=== PATIENT | female | born 1985 | race Caucasian/White ===

== ENCOUNTER 2016-11-30 08:47 | Emergency (ER) | payer MEDICAID, OTHER ==
[~2016-11-30] VITALS: Ht 175.3 cm; Wt 88.0 kg
[~2016-11-30 08:47] MED LIST: TRAM-29 PO
--- NOTE | 2016-11-30 08:58 | PHYS DOC ---
Past Medical History Past Medical History: No Pertinent History Past Surgical History: Tonsillectomy, Other Additional Past Surgical Histo: DNC, ADENOIDECTOMY Alcohol Use: Occasionally Drug Use: None Adult General Chief Complaint Chief Complaint: SORE THROAT HPI HPI Patient is a 31 year old female who presents with sore throat, nasal congestion, right ear pain. She states his been going on for approximately 2 weeks, she still getting greens discharge out of her nose. She denies any fevers chills nausea or vomiting. She's had her adenoids removed in the past and has had tubes in her years secondary to numerous ear infections. She is 17 weeks . She is not having any nausea or abdominal pain. She is been taking Tylenol for discomfort. Review of Systems Review of Systems Constitutional: Denies fever or chills [] Eyes: Denies change in visual acuity, redness, or eye pain [] HENT: Positive for nasal congestion and sore throat in addition to right ear pain/congestion. Respiratory: Denies cough or shortness of breath [] Cardiovascular: No additional information not addressed in HPI [] GI: Denies abdominal pain, nausea, vomiting, bloody stools or diarrhea [] : Denies dysuria or hematuria [] Musculoskeletal: Denies back pain or joint pain [] Integument: Denies rash or skin lesions [] Neurologic: Denies headache, focal weakness or sensory changes [] Endocrine: Denies polyuria or polydipsia [] Allergies Allergies Allergies Coded Allergies Type Severity Reaction Last Updated Verified No Known Drug Allergies 05/09/16 No Physical Exam Physical Exam Constitutional: Well developed, well nourished, no acute distress, non-toxic appearance. [] HENT: Normocephalic, atraumatic, bilateral external ears normal, oropharynx moist, no oral exudates, nose normal. Bilateral TMs without any erythema, right TM with scars from previous ear tubes. No cervical lymphadenopathy appreciated. Eyes: PERRLA, EOMI, conjunctiva normal, no discharge. [] Neck: Normal range of motion, no tenderness, supple, no stridor. [] Cardiovascular:Heart rate regular rhythm, no murmur [] Lungs & Thorax: Bilateral breath sounds clear to auscultation [] Abdomen: Bowel sounds normal, soft, no tenderness, no masses, no pulsatile masses. [] Skin: Warm, dry, no erythema, no rash. [] Back: No tenderness, no CVA tenderness. [] Extremities: No tenderness, no cyanosis, no clubbing, ROM intact, no edema. [] Neurologic: Alert and oriented X 3, normal motor function, normal sensory function, no focal deficits noted. [] Psychologic: Affect normal, judgement normal, mood normal. [] Current Patient Data Vital Signs Vital Signs Date Time Temp Pulse Resp B/P Pulse Ox O2 Delivery O2 Flow Rate FiO2 11/30/16 09:17 98.8 84 20 111/61 98 Room Air 98.8 EKG EKG [] Radiology/Procedures Radiology/Procedures [] Impressions: Sinusitis Course & Med Decision Making Course & Med Decision Making Pertinent Labs and Imaging studies reviewed. (See chart for details) Her symptoms are consistent with sinusitis. She is going be discharged with Augmentin for 10 days and Benadryl when necessary. Both of these are class B . 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 Return precautions given for fevers, neck stiffness, confusion or other concerns. Dragon Disclaimer Dragon Disclaimer This electronic medical record was generated, in whole or in part, using a voice recognition dictation system. Departure Departure Impression: Primary Impression: Sinusitis Disposition: 01 HOME, SELF-CARE Condition: STABLE Referrals: NO PCP (PCP) Patient Instructions: Sinusitis Additional Instructions: Your strep test did not show any abnormalities. Your being discharged home with a diagnosis of sinus infection. You will need to take antibiotics for the next 10 days. You can also take [id number] Benadryl. Both of these medicines are safe in . You'll need follow-up with your primary care physician and your OB within the next 4-5 days. Return ER for high fevers, neck stiffness , confusion, inability to keep food or liquid down or you have other concerns. Scripts Amoxicillin/Potassium Clav (Augmentin 500-125 Tablet)1 Each Tablet1 Tab PO BID # 20 TAB Prov:CHENTE EDMOND MD 11/30/16 CHENTE EDMOND MD Nov 30, 2016 08:58
[2016-11-30 09:17] VITALS: BP 111/61
[2016-11-30] MEDS ORDERED: AMOX1TAB58 PO (09:28)
[2016-11-30 11:41] LABS: NEGATIVE OBC STREP NEG; POSITIVE OBC STREP POS
== END 2016-11-30 09:55 | disposition home or self-care (01) ==
LOC: ER 08:47
DX: O99.512 Diseases of the respiratory system complicating pregnancy, second trimester (principal); J32.9 Chronic sinusitis, unspecified; Z3A.17 17 weeks gestation of pregnancy
CPT/HCPCS: 87880; 99283

== ENCOUNTER 2017-09-30 13:26 | Emergency (ER) | payer OTHER | END 2017-09-30 15:16 | disposition home or self-care (01) | LOC: ER 13:26 | DX: N61.1 Abscess of the breast and nipple (principal) | CPT/HCPCS: 10060; 87071; 87075; 87205; 99284 ==

== ENCOUNTER 2018-04-05 10:46 | Emergency (ER) | payer OTHER ==
[~2018-04-05] VITALS: Ht 175.3 cm; Wt 99.8 kg
[~2018-04-05 10:46] MED LIST changes: +AMOX1TAB58 PO; +CEPH-264 PO; -TRAM-29 PO; +TRAM-48 PO
[2018-04-05 10:55] VITALS: BP 126/79
[2018-04-05] MEDS ORDERED: SULF1TAB24 PO (10:59)
[2018-04-05] MEDS ORDERED: LIDOCAINE WITH 8.4% SOD BICARB 3 ML DISP.SYRIN. INJ ONE (11:00)
--- NOTE | 2018-04-05 11:00 | PHYS DOC ---
Past Medical History Past Medical History: No Pertinent History Additional Past Medical Histor: frequent ear infections, frequent strep throat Past Surgical History: Tonsillectomy, Other Additional Past Surgical Histo: D & C, ADENOIDECTOMY Alcohol Use: Occasionally Drug Use: None Adult General Chief Complaint Chief Complaint: ABSCESS HPI HPI Patient is a 32 year old female who presents with an abscess on her back that she noted 6 days ago. She denies any fever, any drainage from the area. Review of Systems Review of Systems Constitutional: Denies fever or chills [] Musculoskeletal: Denies back pain or joint pain [] Integument: abscess on back Neurologic: Denies headache, focal weakness or sensory changes [] All other systems were reviewed and found to be within normal limits, except as documented in this note. Current Medications Current Medications Current Medications Medications (Trade) Dose Ordered Sig/Ky Start Time Stop Time Status Last Admin Dose Admin Lidocaine/Sodium Bicarbonate (Buffered Lidocaine 1%) 3 ml 1X ONCE 04/05/18 11:00 04/05/18 11:01 DC 04/05/18 11:17 3 ML Allergies Allergies Allergies Coded Allergies Type Severity Reaction Last Updated Verified No Known Drug Allergies 05/09/16 No Physical Exam Physical Exam Constitutional: Well developed, well nourished, no acute distress, non-toxic appearance. [] Skin: Warm, dry, right low back with an indurated area approximately 2 x 2 centimeters with surrounding cellulitis approximately 1 cm. The area is warm, tender to touch, fluctuant. Back: No tenderness, no CVA tenderness. [] Extremities: No tenderness, no cyanosis, no clubbing, ROM intact, no edema. [] Neurologic: Alert and oriented X 3, normal motor function, normal sensory function, no focal deficits noted. [] Psychologic: Affect normal, judgement normal, mood normal. [] Current Patient Data Vital Signs Vital Signs Date Time Temp Pulse Resp B/P (MAP) Pulse Ox O2 Delivery O2 Flow Rate FiO2 04/05/18 10:55 98.5 106 18 126/79 (95) 97 Room Air 98.5 EKG EKG [] Radiology/Procedures Radiology/Procedures Indication: abscess of the back Procedure: The patient was positioned appropriately. Local anesthesia was [ ANESTHESIA]. An incision was then made over the apex of the lesion and mild amount of yellow bloody material was expressed. The drainage cavity was irrigated and covered with sterile gauze. The patients tetanus status updated as needed. The patient tolerated the procedure well. Complications: none.[] Course & Med Decision Making Course & Med Decision Making Pertinent Labs and Imaging studies reviewed. (See chart for details) Patient has an abscess to the back which was drained by me as noted in procedures. She also has surrounding cellulitis. Will be discharged on Cephalexin and Bactroban ointment, tetanus up to date. Instructed to keep the area clean and dry. Follow-up with PCP in 1-2 weeks. Return precautions provided. Dragon Disclaimer Dragon Disclaimer This electronic medical record was generated, in whole or in part, using a voice recognition dictation system. Departure Departure Impression: Primary Impression: Abscess or cellulitis of back Disposition: 01 HOME, SELF-CARE Condition: STABLE Referrals: NO PCP (PCP) Follow-up with your doctor in one week KIKI BALL MD follow up in one week Patient Instructions: Abscess, Care After Additional Instructions: You were seen for an abscess on your back. Keep it clean and dry. Complete your antibiotics. Follow-up with your doctor in 1-2 weeks, come back to the emergency room at any point symptoms worsen. Scripts Mupirocin Calcium (BACTROBAN CREAM) 15 Gm Cream..g. 1 GOYO TP TID, #30 GM Prov: LILIANA BARKER APRN 04/05/18 Cephalexin (CEPHALEXIN) 500 Mg Tablet 1 TAB PO QID, #40 TAB Prov: LILIANA BARKER APRN 04/05/18 LILIANA BARKER APRN Apr 05, 2018 11:00
[2018-04-05] MEDS ORDERED: CEPH500T PO (11:02)
[2018-04-05] MEDS ORDERED: MUPI15CR TP (11:02)
== END 2018-04-05 12:08 | disposition home or self-care (01) ==
LOC: ER 10:46
DX: L02.212 Cutaneous abscess of back [any part, except buttock and flank] (principal)
CPT/HCPCS: 10060; 99283-25